=== PATIENT | female | born 1955 | race Caucasian/White ===

== ENCOUNTER 2019-01-06 05:44 | Day surgery (SDC) | payer OTHER ==
[~2019-01-06] VITALS: Ht 158.8 cm; Wt 97.9 kg
[~2019-01-06 05:44] MED LIST: aspirin; januvia; metformin; metoprolol; simvastatin
[2019-01-06] MEDS ORDERED: GLYCOPYRROLATE 0.4 MG INJ ONE (07:29)
[2019-01-06] MEDS ORDERED: LIDOCAINE 100 MG SYRINGE ONE (07:29)
[2019-01-06] MEDS ORDERED: PROPOFOL 40 ML ONE (07:29)
[2019-01-06 07:30] VITALS: BP 144/72; PULSE 67; RESP 18
[2019-01-06 08:45] VITALS: BP 136/75; PULSE 66; RESP 18
== END 2019-01-06 14:10 | disposition home or self-care (01) ==
LOC: GIL 05:44
PROVIDERS: ATTEND Internal Medicine Gastroenterology
DX: Z12.11 Encounter for screening for malignant neoplasm of colon (principal); K64.4 Residual hemorrhoidal skin tags; D12.3 Benign neoplasm of transverse colon; K57.30 Diverticulosis of large intestine without perforation or abscess without bleeding; E11.9 Type 2 diabetes mellitus without complications; I10 Essential (primary) hypertension; E78.5 Hyperlipidemia, unspecified; E66.01 Morbid (severe) obesity due to excess calories; Z68.38 Body mass index [BMI] 38.0-38.9, adult
CPT/HCPCS: 45380; 82962; J2001; Z7610